=== PATIENT | female | born 1965 | race Caucasian/White ===

== ENCOUNTER 2017-01-27 07:32 | Day surgery (SDC) | payer BC, OTHER ==
[2017-01-23 17:46] LABS: HEMATOCRIT 39.6 % (36.0-48.0); HEMOGLOBIN 13.1 g/dL (12.0-16.0)
--- NOTE | ~2017-01-27 | OP ---
Record Of Operation [facility] [address] [place]. [address] NAME: SHAWNA KRISHNA : 61 STATUS : [facility]#: [id number] AGE: 51 ADM/REG DATE : 01/27/17 MR#: [id number] REPORT SERV DATE: 01/28/17 DICTATED BY: Veronika GUO DATE: 01/27/17 REPORT STATUS : Draft TRANSCRIBED BY: KRISTOPHER DATE: 01/27/17 DATE OF PROCEDURE: PREOPERATIVE DIAGNOSIS: Basaloid adnexal neoplasm, right nasal ala. POSTOPERATIVE DIAGNOSIS: Basal cell carcinoma of the right nasal ala, by frozen section. PROCEDURES: 1. Wide excision of right nasal ala basal cell carcinoma with frozen section. 2. Re-excision of the 5 o'clock to 1 o'clock margin with frozen section, right nasal ala and distal nasal sidewall. 3. Dressing of the open wound of the right nasal ala and distal nasal sidewall. FINDINGS: A right nasal alar lesion proved to be basal cell carcinoma on frozen section requiring excision and then re-excision of the 5 o'clock to 1 o'clock margin because of involvement of the 12 o'clock margin and a close margin at 6 o'clock to 9 o'clock; final defect measured 16-mm tall by 14.5-mm wide; sore in the left lateral nasal vestibule, cultured. INDICATIONS: This 51-year-old female was referred because of a lesion of the right nasal ala which was biopsied and showed a basaloid adnexal neoplasm, with the differential diagnosis being basal cell carcinoma versus trichoepithelioma. The pros and cons, alternatives, benefits, risks, limitations, and complications of excision and probable skin graft reconstruction were discussed at length with the patient. She understands that she is a smoker and has an increased risk of having poor healing due to the smoking. Her nostril was quite thin, and she may end up with a [id number] defect. She understands that she may need subsequent procedures later for further reconstruction, such as a cartilage graft. Preoperatively, I spoke to her about a composite graft of skin and cartilage being an unlikely choice because of her one pack a day (or more) smoking habit. She understands the risks and wishes to proceed. No guarantees expressed. Proper consent obtained. DESCRIPTION OF PROCEDURE: She was taken into the operating room and given general oral endotracheal anesthesia in the supine position. The entire face, right ear, and periauricular scalp and neck were prepped with Hibiclens and saline followed by isopropyl alcohol. None of these solutions got in her eyes. The right nostril was also prepped with the same solutions using sterile Q-tips. The left nostril had a sore at the nasal vestibule laterally, and this was cultured and then the area was prepped with the same solutions with sterile Q-tips. Sterile drapes were applied. The lesion of the right nasal ala was visualized and was marked out with a marking pen circumferentially to delineate the lesion. A 2-mm margin of safety around this lesion was then marked out creating an 11.5-mm diameter tumor and margins to be removed, all located 2 mm from the alar rim and crossing the alar crease superiorly. Record Of Operation [facility] [address] [facility] [place]. [address] NAME: SHAWNA KRISHNA : 61 STATUS : [facility]#: [id number] AGE: 51 ADM/REG DATE : 01/27/17 MR#: [id number] REPORT SERV DATE: 01/28/17 DICTATED BY: Veronika GUO DATE: 01/27/17 REPORT STATUS : Draft TRANSCRIBED BY: KRISTOPHER DATE: 01/27/17 The nose was injected with 1% Xylocaine with 1:100,000 epinephrine and 0.5% Marcaine with 1:200,000 epinephrine. The #15 C blade was used to incise circumferentially to include the tumor in the margins. Before the tumor was removed, a long suture was placed at the 12 o'clock position and a short suture was placed at the 6 o'clock position. The tumor was removed, down to the subdermal area where I could see nasal vestibular hair follicles. The pathologist was brought into the room for orientation and to perform frozen sections. The area did not bleed much. A sponge was placed on the defect. Frozen sections returned showing margins involved at the 12 o'clock position, and the 6 o'clock to 9 o'clock margins were close. Therefore, I told the pathologist that I would get the 5'clock to 1 o'clock margin reexcised, and he felt that that would be proper. This area was a 3-mm excision in the 12 o'clock position and a 2-mm excision in the 6 o'clock to 9 o'clock position. This 5 o'clock to 1 o'clock reexcision was accomplished with a #15 C blade. A long suture was placed at 12 o'clock and a short suture was placed at 6 o'clock and ink-marked the 9 o'clock position as well as ink-marked the new true margin. The frozen sections were performed showing margins free of tumor. At this stage, the options for reconstructions were contemplated. I tori out a standard bilobed myocutaneous flap, but because of the thinness of her nostril, the primary lobe would have been exceedingly thick and inappropriate also because it crossed over the alar crease. Skin grafting at this point I felt was not appropriate because of the extreme depth of the defect. If a thicker graft was used, the graft would be in jeopardy because of her smoking, and I felt that a thicker graft would not take. I felt snell to dress this wound and allow it to granulate before putting on a thinner skin graft. She also knows, from our consultation in the office and also preoperatively, that she may at a much later date need a cartilage graft inserted between the nasal vestibule and a healed skin graft. The wound was then treated with Neosporin ointment and Telfa, and this Telfa was sutured over and over to keep it in place. Great care was taken to avoid injury to the 1-mm rim of skin. Hemostasis was excellent and required no cauterization, once again indicating that vascularity may be in question because of her smoking history. After the dressing was sutured in, it was further secured with Mastisol and paper tape. She was awakened, extubated, and taken to the recovery room in good condition having tolerated the procedure well. Our plan is to allow this to granulate for several weeks before returning to the operating room to place a thin full-thickness skin graft. Home-going instructions included prescriptions for Omnicef 300 mg, #28, one p.o. b.i.d.; Zofran 8 mg ODT, #10, one p.o. q.4-6 h. p.r.n. nausea or vomiting; she has chronic pain medicine for her back which she can take for nasal discomfort. Recheck in the office in 6 days. Record Of Operation [facility] [place] [address] NAME: SHAWNA KRISHNA : 61 STATUS : [facility]#: [id number] AGE: 51 ADM/REG DATE : 01/27/17 MR#: [id number] REPORT SERV DATE: 01/28/17 DICTATED BY: Veronika GUO DATE: 01/27/17 REPORT STATUS : Draft TRANSCRIBED BY: KRISTOPHER DATE: 01/27/17 RIYA/KRISTOPHER Veronika Guo M.D. / [id number] CC: Kiya Jeong M.D.
[~2017-01-27 07:32] MED LIST: ADDER10 PO; CLARIT10 PO; FLEX PO; LORTAB 5 PO; METHOC750B PO; MEVACOR40 MG PO; MOBIC15 MG PO; MSCONT15 PO; PERCOCET 10/3251 TAB PO; PROZ10 PO; RITALIN LA10 MG PO; RITALIN10 PO; TUMSROLL PO; V2 PO; VITD PO; ZANAFLEX 4 MG TA4 MG PO; ZANTAC150 MG PO
== END 2017-01-27 15:38 | disposition home or self-care (01) ==
LOC: SDC 07:32
PROVIDERS: Specialist
PROC: 0HB1XZX Excision of Face Skin, External Approach, Diagnostic (ICD-10-PCS; principal; 2017-01-27 08:45)
DX: C44.311 Basal cell carcinoma of skin of nose (principal); G43.909 Migraine, unspecified, not intractable, without status migrainosus; D64.9 Anemia, unspecified; J44.9 Chronic obstructive pulmonary disease, unspecified; F31.9 Bipolar disorder, unspecified; F41.9 Anxiety disorder, unspecified; F17.210 Nicotine dependence, cigarettes, uncomplicated; J34.2 Deviated nasal septum; J34.89 Other specified disorders of nose and nasal sinuses; Z79.899 Other long term (current) drug therapy; Z98.890 Other specified postprocedural states; Z90.710 Acquired absence of both cervix and uterus; Z88.8 Allergy status to other drugs, medicaments and biological substances; Z88.0 Allergy status to penicillin
CPT/HCPCS: 36415; 85014; 85018; 87015; 87070; 87075; 87077; 87102; 87116; 87186; 88305; 88331; 93005; A9270-GY; J0690; J2250; J2405; J2550; J2710; J3010